=== PATIENT | male | born 1995 | race African-American/Black ===

== ENCOUNTER 2023-09-29 08:56 | Emergency (ER) | payer BC, OTHER ==
[2023-09-29 09:15] VITALS: BP 118/68; PULSE 77; RESP 16; TEMP 99; BMI 20.2
[2023-09-29] MEDS ORDERED: ACETAMINOPHEN 500 MG TABLET (FP) PO ONE (09:19)
[2023-09-29] MEDS ORDERED: ACETAMINOPHEN 500 MG TABLET (FP) ONE (09:21)
== END 2023-09-29 09:54 | disposition home or self-care (01) ==
LOC: FER 08:56
DX: R53.83 Other fatigue (principal); M79.10 Myalgia, unspecified site; J06.9 Acute upper respiratory infection, unspecified; R50.9 Fever, unspecified; R05.9 Cough, unspecified; K59.00 Constipation, unspecified; Z20.822 Contact with and (suspected) exposure to COVID-19
CPT/HCPCS: 0241U-QW; 99283-25

== ENCOUNTER 2023-10-02 02:02 | Emergency (ER) | payer SELFPAY ==
[2023-10-02] MEDS ORDERED: ADENOSINE 6 MG/2 ML VIAL IVPUSH ONE (02:16)
[2023-10-02] MEDS ORDERED: predniSONE 20 MG TABLET (UD) PO ONE (03:22)
[2023-10-02 03:29] VITALS: BP 122/77; PULSE 75; RESP 18; TEMP 98; BMI 20.7
== END 2023-10-02 03:41 | disposition home or self-care (01) ==
LOC: FER 02:02
DX: R07.0 Pain in throat (principal)
CPT/HCPCS: 99283-25

== ENCOUNTER 2023-10-03 22:22 | Emergency (ER) | payer SELFPAY ==
[2023-10-04 00:02] VITALS: BP 125/80; PULSE 62; RESP 16; TEMP 97.9; BMI 20.7
== END 2023-10-04 00:02 | disposition home or self-care (01) ==
LOC: FER 22:22
DX: R39.11 Hesitancy of micturition (principal)
CPT/HCPCS: 81003; 81015; 87086; 99283-25

== ENCOUNTER 2023-10-13 13:36 | Emergency (ER) | payer OTHER ==
[2023-10-13 14:04] VITALS: BP 124/79; PULSE 68; RESP 18; TEMP 98.4; BMI 22.1
== END 2023-10-13 14:09 | disposition home or self-care (01) ==
LOC: FER 13:36
DX: R13.10 Dysphagia, unspecified (principal)
CPT/HCPCS: 99283-25

== ENCOUNTER 2023-10-14 00:55 | Emergency (ER) | payer OTHER ==
[2023-10-14 01:04] VITALS: BP 115/86; PULSE 78; RESP 16; TEMP 98.4; BMI 22.1
[2023-10-14] MEDS ORDERED: risperiDONE 1 MG TABLET ONE (01:42)
== END 2023-10-14 01:45 | disposition home or self-care (01) ==
LOC: FER 00:55
DX: R13.10 Dysphagia, unspecified (principal); T78.40XA Allergy, unspecified, initial encounter
CPT/HCPCS: 99283-25